=== PATIENT | male | born 1965 | race Caucasian/White ===

== ENCOUNTER 2017-12-21 10:39 | Day surgery (SDC) | payer OTHER ==
[2017-12-21 11:10] VITALS: BMI 25.8
[2017-12-21] MEDS ORDERED: PROPOFOL 20 ML ONE (11:13)
[2017-12-21 12:26] VITALS: TEMP 97.8
[2017-12-21 12:43] VITALS: BP 136/86; PULSE 65
--- NOTE | 2017-12-22 18:04 | PATH ---
Surgical Pathology Report Patient Name: PASCALE RUANO [facility]. Rec. #: [id number] /Age/Gender: 1965 (Age: 52) / M Account: [id number] Location: [facility]-ENDOS[facility] Taken: 12/21/2017 Received: 12/21/2017 Reported: 12/22/2017 Physicians: Alonso Gutierrez M.D. Specimen(s) Received A: RIGHT COLON B: BX RECTUM Clinical History History of colonic polyp, history of colon cancer Postoperative diagnosis: Polyps Final Diagnosis A. COLON, RIGHT, BIOPSY: HYPERPLASTIC POLYP. B. RECTUM, BIOPSY: TUBULAR ADENOMA. Electronically Signed Shoshana Ahuja M.D. Gross Description A. Received in formalin, labeled "right colon" is a wall, irregular portion of soft tissue measuring 0.6 cm. in greatest dimension. The specimen is submitted in toto in one cassette. B. Received in formalin, labeled "rectum" is a wall, polypoid portion of soft tissue measuring 0.7 cm. in greatest dimension. The specimen is submitted in toto in one cassette. /12/21/2017 saudi12/21/2017
== END 2017-12-21 12:45 | disposition home or self-care (01) ==
LOC: FASU-ENDO 10:39
PROVIDERS: ATTEND Internal Medicine Gastroenterology
PROC: 0DBK8ZX Excision of Ascending Colon, Via Natural or Artificial Opening Endoscopic, Diagnostic (ICD-10-PCS; principal; 2017-12-21 11:51)
PROC: 0DBP8ZX Excision of Rectum, Via Natural or Artificial Opening Endoscopic, Diagnostic (ICD-10-PCS; 2017-12-21 11:51)
DX: Z86.010 Personal history of colon polyps (principal); D12.8 Benign neoplasm of rectum; K63.5 Polyp of colon; Z98.0 Intestinal bypass and anastomosis status
CPT/HCPCS: 88305-TC

== ENCOUNTER 2018-10-11 22:19 | Emergency (ER) | payer OTHER ==
--- NOTE | 2018-10-11 22:23 | PDOC ---
History of Present Illness - General History Source: Patient Exam Limitations: No Limitations - History of Present Illness Initial Comments: 10/11/18 23:30 The patient is a 53 year old male, with a significant PMH of colon cancer ( 9 years ago) and HTN, who presents to the emergency department with left arm pain that began tonight. The patient describes the sharp intermittent pain as shooting lasting for a few seconds accompanied with left hand tingling . The patient also endorses associated symptoms of fatigue, lightheadedness, and dehydration. 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 The patient states he had an appointment with his neurologist last and awaiting for a MRI. The patient denies chest pain , shortness of breath, headache and dizziness.Denies fever, chills, nausea, vomit, diarrhea and constipation. Allergies: NKDA Past surgical history: colon resection with chemo 2009 Social history: admits to drinking alcohol occasionally but denies tobacco and recreational drug use. PCP:Jatin Jarvis <Danny Mullen - Last Filed: 10/11/18 23:57> <Silvia Han - Last Filed: 10/12/18 02:46> - General Chief Complaint: Lightheaded Stated Complaint: LEFT ARM PAIN/DIZZY Time Seen by Provider: 10/11/18 22:22 Past History <Danny Mullen - Last Filed: 10/11/18 23:57> - Past Medical History Anemia: No Asthma: No Cancer: Yes (COLON) Cardiac Disorders: No CVA: No COPD: No CHF: No Dementia: No Diabetes: No GI Disorders: Yes (COLON CANCER) Disorders: No HTN: Yes Hypercholesterolemia: No Liver Disease: No Seizures: No Thyroid Disease: No - Surgical History Abdominal Surgery: Yes (COLON RESECTION WITH CHEMO 2009) Appendectomy: No Cardiac Surgery: No Cholecystectomy: No Lung Surgery: No Neurologic Surgery: No Orthopedic Surgery: No - Immunization History Td Vaccination: Yes Immunization Up to Date: Yes - Suicide/Smoking/Psychosocial Hx Smoking Status: No Smoking History: Never smoked Have you smoked in the past 12 months: No Number of Cigarettes Smoked Daily: 0 Hx Alcohol Use: Yes (OCC) Drug/Substance Use Hx: No Substance Use Type: Alcohol Hx Substance Use Treatment: No <Silvia Han - Last Filed: 10/12/18 02:46> - Past Medical History Allergies/Adverse Reactions: Allergies Allergy/AdvReac Type Severity Reaction Status Date / Time No Known Allergies Allergy Verified 10/11/18 22:36 Home Medications: Ambulatory Orders Multivitamin [Daily Vitamin] 1 each PO DAILY tablet 03/06/14 Cholecalciferol (Vitamin D3) [Vitamin D3] 2,000 unit PO DAILY #90 tablet Amlodipine Besylate 10 mg PO DAILY 12/21/17 Ramipril 10 mg PO DAILY 12/21/17 Review of Systems - Review of Systems Able to Perform ROS?: Yes Comments:: 10/11/18 23:31 GENERAL/CONSTITUTIONAL: No fever or chills. No weakness. HEAD, EYES, EARS, NOSE AND THROAT: No change in vision. No ear pain or discharge. No sore throat. CARDIOVASCULAR: No chest pain or shortness of breath. RESPIRATORY: No cough, wheezing, or hemoptysis. GASTROINTESTINAL: No nausea, vomiting, diarrhea or constipation. GENITOURINARY: No dysuria, frequency, or change in urination. MUSCULOSKELETAL: +left arm shooting pain. No neck or back pain. SKIN: No rash NEUROLOGIC: +left hand tingling. +lightheadness.No headache, vertigo, loss of consciousness, ENDOCRINE: No increased thirst. No abnormal weight change. HEMATOLOGIC/LYMPHATIC: No anemia, easy bleeding, or history of blood clots. ALLERGIC/IMMUNOLOGIC: No hives or skin allergy. <Danny Mullen - Last Filed: 10/11/18 23:57> *Physical Exam - Vital Signs Last Vital Signs Temp Pulse Resp BP Pulse Ox 98 F 64 12 154/91 100 10/11/18 22:48 10/11/18 22:48 10/11/18 22:48 10/11/18 22:48 10/11/18 22:48 - Physical Exam Comments: 10/11/18 23:31 GENERAL: Awake, alert, and fully oriented, in no acute distress HEAD: No signs of trauma EYES: PERRLA, EOMI, sclera anicteric, conjunctiva clear ENT: Auricles normal inspection, hearing grossly normal, nares patent, oropharynx clear without exudates. Moist mucosa NECK: Normal ROM, supple, no lymphadenopathy, JVD, or masses LUNGS: Breath sounds equal, clear to auscultation bilaterally. No wheezes, and no crackles HEART: Regular rate and rhythm, normal S1 and S2, no murmurs, rubs or gallops ABDOMEN: Soft, nontender, normoactive bowel sounds. No guarding, no rebound. No masses EXTREMITIES: Normal range of motion, no edema. No clubbing or cyanosis. No cords, erythema, or tenderness NEUROLOGICAL: Cranial nerves II through XII grossly intact. Normal speech, normal gait SKIN: Warm, Dry, normal turgor, no rashes or lesions noted. <Danny Mullen - Last Filed: 10/11/18 23:57> Moderate Sedation - Procedure Monitoring Vital Signs: Procedure Monitoring Vital Signs Temperature 98 F 10/11/18 22:48 Pulse Rate 64 10/11/18 22:48 Respiratory Rate 12 10/11/18 22:48 Blood Pressure 154/91 10/11/18 22:48 O2 Sat by Pulse Oximetry (%) 100 10/11/18 22:48 <Danny Mullen - Last Filed: 10/11/18 23:57> Heart Score/ECG Review - History History: Slightly suspicious - Electrocardiogram EKG: Normal - Age Age: 45-65 - Risk Factors Risk Factors Heart Score: Yes Hx Hypertension Based on the list above the patient has:: 1-2 risk factors - Troponin Troponin: </= normal limit - Score Heart Score - Total: 2 <Silvia Han - Last Filed: 10/12/18 02:46> ED Treatment Course - LABORATORY CBC & Chemistry Diagram: 10/11/18 22:30 10/11/18 22:30 - ADDITIONAL ORDERS Additional order review: Laboratory Results 10/11/18 10/11/18 10/11/18 22:40 22:30 22:30 PT with INR 11.5 INR 1.03 Sodium Potassium Chloride Carbon Dioxide Anion Gap BUN Creatinine Creat Clearance w eGFR Random Glucose Calcium Total Bilirubin AST ALT Alkaline Phosphatase Creatine Kinase Creatine Kinase Index CK-MB (CK-2) Troponin I < 0.03 Total Protein Albumin Urine Color Yellow Urine Appearance Clear Urine pH 6.5 Ur Specific Martin 1.010 Urine Protein Negative Urine Glucose (UA) Negative Urine Ketones Negative Urine Blood Negative Urine Nitrite Negative Urine Bilirubin Negative Urine Urobilinogen 0.2 Ur Leukocyte Esterase Negative 10/11/18 22:30 PT with INR INR Sodium 136 Potassium 3.5 Chloride 102 Carbon Dioxide 24 Anion Gap 10 BUN 21 H Creatinine 1.1 Creat Clearance w eGFR > 60 Random Glucose 101 Calcium 9.1 Total Bilirubin 0.4 AST 24 ALT 23 Alkaline Phosphatase 52 Creatine Kinase 216 Creatine Kinase Index 1.3 CK-MB (CK-2) 3.0 Troponin I Total Protein 6.9 Albumin 4.2 Urine Color Urine Appearance Urine pH Ur Specific Martin Urine Protein Urine Glucose (UA) Urine Ketones Urine Blood Urine Nitrite Urine Bilirubin Urine Urobilinogen Ur Leukocyte Esterase 10/11/18 22:30 RBC 4.18 MCV 95.3 MCHC 33.7 RDW 12.4 MPV 8.3 Neutrophils % 60.1 Lymphocytes % 24.0 D Monocytes % 11.7 H Eosinophils % 3.4 Basophils % 0.8 D <Danny Mullen - Last Filed: 10/11/18 23:57> - LABORATORY CBC & Chemistry Diagram: 10/11/18 22:30 10/11/18 22:30 <Silvia Han - Last Filed: 10/12/18 02:46> Medical Decision Making - Medical Decision Making Documentation has been prepared under my direction and personally reviewed by me in its entirety. I attest that this documented accurately reflects all work, treatment, procedures and medical decision making performed by me. 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 No other complaints. Exam as noted. No motor or sensory deficits noted in neurologic exam. Patient has one risk factor for coronary artery disease: Hypertension 12-lead electrocardiogram is performed and interpreted by me: Normal sinus rhythm of 66 bpm; evidence for LVH present but otherwise wave forms, axis and intervals are all normal. No evidence of acute ST or T-wave abnormality; no evidence of acute cardiac arrhythmia CBC/chemistry profile/INR/troponin/urinalysis performed. Noncontrast head CT also performed and interpreted by Dr. Hunter of the radiology staff: No evidence of acute intracranial pathology. Laboratory evaluation is essentially normal. Troponin is not elevated. During the time that patient was awaiting completion of the laboratory evaluation, the numbness of his left palm resolved. No new symptoms developed. Case discussed with the patient's neurologist, : Very unlikely that tonights symptoms represented TIA or other acute neurologic process. MRI is scheduled for the very near future. He will then follow-up with Dr. Keita. The patient's heart score is 2. He will be discharged with advice to return to the ER if he has any recurrent left arm pain or develops chest pain/shortness of breath. His follow-up MRI should be scheduled MARLENE and he will call radiology department tomorrow to pursue scheduling it. <Silvia Han - Last Filed: 10/12/18 02:46> *DC/Admit/Observation/Transfer - Attestations Scribe Attestion: 10/11/18 23:32 Documentation prepared by Danny Mullen, acting as medical records library professor for Silvia Han MD. <Danny Mullen - Last Filed: 10/11/18 23:57> <Silvia Han - Last Filed: 10/12/18 02:46> Diagnosis at time of Disposition: Arm paresthesia, left - Discharge Dispostion Disposition: HOME Condition at time of disposition: Stable - Referrals Referrals: Jatin Jarvis MD [Primary Care Provider] - Brannon Keita DO [Staff Physician] - - Patient Instructions Printed Discharge Instructions: DI for Numbness/tingling Additional Instructions: continue medications as prescribed followup with Radiology department to schedule MRI as discussed followup with Dr Keita as scheduled return to ER if you have persistent pain/ weakness/numbness - Post Discharge Activity
[2018-10-11 22:49] LABS: BASO % 0.8 % (0-2.0); EOS % 3.4 % (0-4.5); HEMATOCRIT 39.8 % (35.4-49); HEMOGLOBIN 13.4 GM/dl (11.7-16.9); MCH 32.1 pg (25.7-33.7); MCHC 33.7 g/dl (32.0-35.9); MEAN CELL VOLUME 95.3 fl (80-96); MEAN PLT VOLUME 8.3 fl (7.5-11.1); MONO % 11.7 % (3.8-10.2); NEUT % 60.1 % (42.8-82.8); PLATELET COUNT 159 K/MM3 (134-434); RBC 4.18 M/mm3 (4.00-5.60); RDW 12.4 % (11.9-15.9); WHITE BLOOD COUNT 4.6 K/mm3 (4.0-10.8)
[2018-10-11 22:51] LABS: PH,URINE 6.5 (4.5-8); URINE APPEARANCE Clear; URINE BILIRUBIN Negative (NEGATIVE); URINE COLOR Yellow; URINE GLUCOSE (UA) Negative (NEGATIVE); URINE KETONE Negative (NEGATIVE); URINE LEUK ESTERASE Negative (NEGATIVE); URINE NITRITE Negative (NEGATIVE); URINE PROTEIN Negative (NEGATIVE); URINE UROBILINOGEN 0.2 (0.2-1.0)
[2018-10-11 22:53] VITALS: TEMP 98; BMI 26.6
[2018-10-11 22:58] LABS: INR 1.03 (0.82-1.09); PROTHROMBIN TIME (PATIENT) 11.5 SEC (10.2-13.0)
[2018-10-11 23:02] LABS: ALBUMIN 4.2 g/dl (3.4-5.0); ALK PHOS 52 U/L (45-117); ANION GAP 10 MMOL/L (8-16); BILIRUBIN,TOTAL 0.4 mg/dl (0.2-1); BLOOD UREA NITROGEN 21 mg/dl (7-18); CALCIUM 9.1 mg/dl (8.5-10); CHLORIDE 102 mmol/L (98-107); CO2 24 mmol/L (21-32); CREATININE 1.1 mg/dl (0.55-1.3); GLUCOSE,RANDOM 101 mg/dl (74-106); POTASSIUM 3.5 mmol/L (3.5-5.1); SGOT/AST 24 U/L (15-37); SGPT/ALT 23 U/L (13-61); SODIUM 136 mmol/L (136-145); TOT PROT 6.9 g/dl (6.4-8.2)
[2018-10-11 23:35] VITALS: BP 143/87; PULSE 67
--- NOTE | 2018-10-14 10:55 | EKG ---
Test Reason : Blood Pressure : / mmHG Vent. Rate : 066 BPM Atrial Rate : 066 BPM P-R Int : 184 ms QRS Dur : 100 ms QT Int : 378 ms P-R-T Axes : 038 064 012 degrees QTc Int : 396 ms NORMAL SINUS RHYTHM LEFT VENTRICULAR HYPERTROPHY WITH REPOLARIZATION ABNORMALITY ABNORMAL ECG NO PREVIOUS ECGS AVAILABLE Confirmed by JAMEL CULP, KALI ([id number]) on 10/14/2018 10:54:48 AM Referred By: Confirmed By:KALI MCCULLOUGH MD
== END 2018-10-11 23:57 | disposition home or self-care (01) ==
LOC: FER 22:19
DX: R20.2 Paresthesia of skin (principal); I10 Essential (primary) hypertension
CPT/HCPCS: 36415; 70450-TC; 80053; 81003; 82550; 82553; 84484; 85025; 85610; 93005; 99283-25